=== PATIENT | female | born 1970 | race Hispanic/Latino ===

== ENCOUNTER 2016-09-07 08:52 | Emergency (ER) | payer OTHER ==
[~2016-09-07] VITALS: Ht 160 cm; Wt 70.4 kg
[2016-09-07] MEDS ORDERED: FLEXERIL10 MG PO (10:52)
[2016-09-07] MEDS ORDERED: MOTRIN800 MG PO (10:52)
[2016-09-07 11:15] VITALS: BP 135/80
== END 2016-09-07 11:37 | disposition home or self-care (01) ==
LOC: EME 08:52 → EDBD 08:52 → EME 11:37
DX: S40.011A Contusion of right shoulder, initial encounter (principal); S30.0XXA Contusion of lower back and pelvis, initial encounter; V49.40XA Driver injured in collision with unspecified motor vehicles in traffic accident, initial encounter; Y92.411 Interstate highway as the place of occurrence of the external cause
CPT/HCPCS: 71020; 73030; 99281; 99283